=== PATIENT | female | born 1975 | race Caucasian/White ===

== ENCOUNTER 2017-02-13 19:19 | Emergency (ER) | payer MEDICARE, MEDICAID ==
--- NOTE | 2017-02-13 19:59 | RAD ---
2 VIEWS CHEST: Date: 02/13/17 COMPARISON: 03/23/12. HISTORY: Chest pain. FINDINGS: Lungs are clear. Heart and mediastinal contours unremarkable. No acute osseous abnormality. IMPRESSION: No acute findings. POS: [facility]
[2017-02-13 20:10] LABS: #Basophils 0.1 thou/uL (0.0-0.2); #Eosinphils 0.4 thou/uL (0.0-0.7); #Monocytes 0.6 thou/uL (0.11-0.59); #Neutrophils 7.1 thou/uL (1.40-6.50); %Basophils 0.9 % (0.0-1.0); %Eosinophils 3.7 % (0.0-10.0); %Lymphocytes 27.1 % (21.0-51.0); Hematocrit 51.2 % (36.0-47.0); Mean Platelet Volume 7.2 fL (7.4-10.4); Red Blood Cell (RBC) Count 5.15 mill/uL (4.20-5.40); White Blood Cell (WBC) Count 11.2 thou/uL (4.8-10.8)
[2017-02-13 20:33] LABS: ALT (SGPT) 31 U/L (8-55); AST (SGOT) 33 U/L (5-34); Alkaline Phosphatase 93 U/L (40-150); Anion Gap 16 mmol/L (10-20); BUN (Urea Nitrogen) 6 mg/dL (7.0-18.7); Bilirubin, Total 0.8 mg/dL (0.2-1.2); CK (CPK) 69 U/L (29-168); Calc. Creatinine Clearance 0 mL/min (70-130); Calcium 9.8 mg/dL (7.8-10.44); Carbon Dioxide 24 mmol/L (22-29); Chloride 102 mmol/L (98-107); Estimated GFR-MDRD 81; Protein, Total 8.4 g/dL (6.0-8.3)
[2017-02-13 20:59] LABS: Troponin I Less than 0.010 ng/mL (< 0.028)
--- NOTE | 2017-03-05 11:42 | EKG ---
Test Reason : Blood Pressure : / mmHG Vent. Rate : 089 BPM Atrial Rate : 089 BPM P-R Int : 150 ms QRS Dur : 076 ms QT Int : 356 ms P-R-T Axes : 074 069 077 degrees QTc Int : 433 ms Normal sinus rhythm Low voltage QRS T wave abnormality, consider anterior ischemia No STEMI Abnormal ECG Confirmed by SARMAD ATKINSON M.D. ([id number]), assignment editor [place] ([id number] on 03/05/2017 11:42:21 AM Referred By: Confirmed By:SARMAD ATKINSON M.D.
== END 2017-02-13 21:04 | disposition home or self-care (01) ==
LOC: ERS 19:19
DX: R05 Cough (principal); J45.909 Unspecified asthma, uncomplicated; F32.9 Major depressive disorder, single episode, unspecified; F17.210 Nicotine dependence, cigarettes, uncomplicated
CPT/HCPCS: 36415; 71020; 80053; 82550; 82553; 84484; 85025; 93005; 94640; 99406; J7620

== ENCOUNTER 2018-03-06 21:44 | Emergency (ER) | payer MEDICARE, MEDICAID ==
[2018-03-06] MEDS ORDERED: HYDROcodone/Acetaminophen 10/325 mg Tablet ONE (22:19)
--- NOTE | 2018-03-06 23:04 | RAD ---
RIGHT ANKLE THREE VIEWS: HISTORY: A 42-year-old female with a history of right ankle pain following an injury from a fall. FINDINGS: There is prominently anterior and lateral soft tissue swelling. There are some opacities within or o n the skin, overlying the lateral malleolus. No fracture or dislocation. IMPRESSION: No fracture or dislocation. Lateral soft tissue swelling. There are some linear opacities, which ap pear to be on or within the skin overlying the lateral malleolus. POS: [facility]
--- NOTE | 2018-03-06 23:05 | RAD ---
RIGHT TIBIA AND FIBULA TWO VIEWS: HISTORY: A 42-year-old female with a history of right tibia and fibula pain following an injury from a fall. FINDINGS/IMPRESSION: No fracture, dislocation, or other significant acute osseous abnormality. POS: [facility]
--- NOTE | 2018-03-06 23:06 | RAD ---
RIGHT FOOT THREE VIEWS: HISTORY: A 42-year-old female with a history of right foot injury following injury from a fall. FINDINGS: Minimal soft tissue swelling at the level of the ankle. No evidence for acute fracture or dislocatio n of the foot. IMPRESSION: No fracture or dislocation. Soft tissue swelling of the ankle. POS: [facility]
== END 2018-03-07 | disposition home or self-care (01) ==
LOC: ERS 21:44
DX: M25.571 Pain in right ankle and joints of right foot (principal); J45.909 Unspecified asthma, uncomplicated; F32.9 Major depressive disorder, single episode, unspecified; F17.210 Nicotine dependence, cigarettes, uncomplicated; W19.XXXA Unspecified fall, initial encounter

== ENCOUNTER 2019-01-11 11:46 | Emergency (ER) | payer MEDICARE ==
[2019-01-11] MEDS ORDERED: Dexamethasone 4 MG TAB ONE (12:27)
--- NOTE | 2019-01-11 12:37 | RAD ---
EXAM: Chest PA and lateral: HISTORY: Cough COMPARISON: 02/13/2017 FINDINGS: Heart size:Within normal limits. Lungs:Clear of acute process. No confluent pneumonia, overt edema, pleural effusion, or other acute process. IMPRESSION: No significant acute intrathoracic disease.
== END 2019-01-11 12:46 | disposition home or self-care (01) ==
LOC: SCSER 11:46
DX: J20.9 Acute bronchitis, unspecified (principal); M94.0 Chondrocostal junction syndrome [Tietze]; J45.909 Unspecified asthma, uncomplicated; F32.9 Major depressive disorder, single episode, unspecified; F17.210 Nicotine dependence, cigarettes, uncomplicated
CPT/HCPCS: 71046; 93005; 94640; J7620; J8540